=== PATIENT | female | born 1970 ===

== ENCOUNTER → 2016-09-08 | Outpatient (CLI) | payer BC | END | disposition home or self-care (01) | LOC: EDBD 09:05 → ECT 09:05 | DX: F33.2 Major depressive disorder, recurrent severe without psychotic features (principal); Z90.710 Acquired absence of both cervix and uterus; Z90.49 Acquired absence of other specified parts of digestive tract; M79.7 Fibromyalgia; M17.0 Bilateral primary osteoarthritis of knee; Z79.82 Long term (current) use of aspirin ==

== ENCOUNTER 2016-09-18 05:05 | Outpatient (RCR) | payer BC ==
[~2016-09-18] VITALS: Ht 160 cm; Wt 81.6 kg
[2016-09-18] MEDS ORDERED: Midazolam 2mg/2ml Inj ONE ×2 (05:06)
[2016-09-18] MEDS ORDERED: Excedrin Migraine tab ONE (05:06)
[2016-09-18] MEDS ORDERED: NS 550ML IV ONE ×2 (05:06)
[2016-09-18] MEDS ORDERED: Succinylcholine 20mg/ml 10ml vial ONE ×2 (05:06)
[2016-09-18] MEDS ORDERED: Ketorolac 60mg Inj ONE ×2 (05:06)
[2016-09-18] MEDS ORDERED: Methohexital Sodium Syr 100mg/10ml IVP ONE ×2 (05:06)
[2016-09-18] MEDS ORDERED: Glycopyrrolate 0.2mg/ml 1ml Vial ONE (05:06)
[2016-09-18] MEDS ORDERED: SUMAtriptan 6mg/0.5ml Inj SUBQ ONE ×2 (05:06)
[2016-09-21] MEDS ORDERED: Succinylcholine 20mg/ml 10ml vial ONE (15:09)
[2016-09-21] MEDS ORDERED: Midazolam 2mg/2ml Inj ONE (15:09)
[2016-09-21] MEDS ORDERED: NS 550ML IV ONE (15:09)
[2016-09-21] MEDS ORDERED: Ketorolac 30mg Inj ONE (15:09)
[2016-09-21] MEDS ORDERED: Methohexital Sodium Syr 100mg/10ml IVP ONE (15:09)
[2016-09-21] MEDS ORDERED: SUMAtriptan 6mg/0.5ml Inj SUBQ ONE (15:09)
[2016-09-23] MEDS ORDERED: SUMAtriptan 6mg/0.5ml Inj SUBQ ONE (08:00)
[2016-09-23] MEDS ORDERED: Midazolam 2mg/2ml Inj ONE (08:00)
[2016-09-23] MEDS ORDERED: Succinylcholine 20mg/ml 10ml vial ONE (08:00)
[2016-09-23] MEDS ORDERED: NS 550ML IV ONE (08:00)
[2016-09-23] MEDS ORDERED: Ketorolac 60mg Inj ONE (08:00)
[2016-09-23] MEDS ORDERED: Methohexital Sodium Syr 100mg/10ml IVP ONE (08:00)
[2016-09-25] MEDS ORDERED: Succinylcholine 20mg/ml 10ml vial ONE (08:00)
[2016-09-25] MEDS ORDERED: Ketorolac 60mg Inj ONE (08:00)
[2016-09-25] MEDS ORDERED: Methohexital Sodium Syr 100mg/10ml IVP ONE (08:00)
[2016-09-25] MEDS ORDERED: NS 550ML IV ONE (08:00)
[2016-09-25] MEDS ORDERED: Excedrin Migraine tab ONE (08:00)
[2016-09-25] MEDS ORDERED: Midazolam 2mg/2ml Inj ONE (08:00)
[2016-09-25] MEDS ORDERED: SUMAtriptan 6mg/0.5ml Inj SUBQ ONE (08:00)
[2016-09-25] MEDS ORDERED: Excedrin Migraine tab ORAL PRN (09:33)
[2016-09-28] MEDS ORDERED: Excedrin Migraine tab ORAL PRN (09:18)
[2016-09-30] MEDS ORDERED: Excedrin Migraine tab ORAL PRN (08:29)
[2016-09-30] MEDS ORDERED: Ketorolac 30mg Inj ONE (12:30)
[2016-09-30] MEDS ORDERED: Glycopyrrolate 0.2mg/ml 1ml Vial ONE (12:30)
[2016-09-30] MEDS ORDERED: SUMAtriptan 6mg/0.5ml Inj SUBQ ONE (12:30)
[2016-09-30] MEDS ORDERED: Midazolam 2mg/2ml Inj ONE (12:30)
[2016-09-30] MEDS ORDERED: NS 550ML IV ONE (12:30)
[2016-09-30] MEDS ORDERED: Succinylcholine 20mg/ml 10ml vial ONE (12:30)
[2016-09-30] MEDS ORDERED: Excedrin Migraine tab ONE (12:30)
[2016-09-30] MEDS ORDERED: Methohexital Sodium Syr 100mg/10ml IVP ONE (12:30)
[2016-10-02] MEDS ORDERED: Midazolam 2mg/2ml Inj ONE (12:30)
[2016-10-02] MEDS ORDERED: Methohexital Sodium Syr 100mg/10ml IVP ONE (12:30)
[2016-10-02] MEDS ORDERED: Glycopyrrolate 0.2mg/ml 1ml Vial ONE (12:30)
[2016-10-02] MEDS ORDERED: NS 550ML IV ONE (12:30)
[2016-10-02] MEDS ORDERED: Succinylcholine 20mg/ml 10ml vial ONE (12:30)
[2016-10-02] MEDS ORDERED: Excedrin Migraine tab ORAL PRN (12:30)
[2016-10-02] MEDS ORDERED: Ketorolac 30mg Inj ONE (12:30)
[2016-10-02] MEDS ORDERED: SUMAtriptan 6mg/0.5ml Inj SUBQ ONE (12:30)
[2016-10-02] MEDS ORDERED: Excedrin Migraine tab ONE (12:30)
== END 2016-10-02 | disposition home or self-care (01) ==
LOC: ECT 05:05
DX: F33.2 Major depressive disorder, recurrent severe without psychotic features (principal); M79.7 Fibromyalgia; Z90.49 Acquired absence of other specified parts of digestive tract; Z90.710 Acquired absence of both cervix and uterus; M17.0 Bilateral primary osteoarthritis of knee
CPT/HCPCS: 90870; J0330; J1885; J2250; J3030; J7040

== ENCOUNTER 2016-10-07 06:15 | Outpatient (RCR) | payer BC ==
[~2016-10-07] VITALS: Ht 160 cm; Wt 81.8 kg
[2016-10-07] MEDS ORDERED: NS 550ML IV ONE ×3 (06:16)
[2016-10-07] MEDS ORDERED: Ketorolac 60mg Inj ONE ×3 (06:16)
[2016-10-07] MEDS ORDERED: Excedrin Migraine tab ONE ×2 (06:16)
[2016-10-07] MEDS ORDERED: SUMAtriptan 6mg/0.5ml Inj SUBQ ONE ×3 (06:16)
[2016-10-07] MEDS ORDERED: Ketamine 500mg Inj ONE ×3 (06:16)
[2016-10-07] MEDS ORDERED: Succinylcholine 20mg/ml 10ml vial ONE ×3 (06:16)
[2016-10-07] MEDS ORDERED: Glycopyrrolate 0.2mg/ml 1ml Vial ONE ×3 (06:16)
[2016-10-07] MEDS ORDERED: Diazepam 10mg/2ml Inj ONE (06:16)
[2016-10-07] MEDS ORDERED: Midazolam 2mg/2ml Inj ONE ×3 (06:16)
[2016-10-07] MEDS ORDERED: Excedrin Migraine tab ORAL PRN (09:18)
[2016-10-09] MEDS ORDERED: Ketorolac 60mg Inj ONE (08:00)
[2016-10-09] MEDS ORDERED: Succinylcholine 20mg/ml 10ml vial ONE (08:00)
[2016-10-09] MEDS ORDERED: Ketamine 500mg Inj ONE (08:00)
[2016-10-09] MEDS ORDERED: Glycopyrrolate 0.2mg/ml 1ml Vial ONE (08:00)
[2016-10-09] MEDS ORDERED: Excedrin Migraine tab ONE (08:00)
[2016-10-09] MEDS ORDERED: Midazolam 2mg/2ml Inj ONE (08:00)
[2016-10-09] MEDS ORDERED: SUMAtriptan 6mg/0.5ml Inj SUBQ ONE (08:00)
[2016-10-09] MEDS ORDERED: NS 550ML IV ONE (08:00)
[2016-10-09] MEDS ORDERED: Excedrin Migraine tab ORAL PRN (08:03)
[2016-10-12] MEDS ORDERED: SUMAtriptan 6mg/0.5ml Inj SUBQ ONE (07:00)
[2016-10-12] MEDS ORDERED: Midazolam 2mg/2ml Inj ONE (07:00)
[2016-10-12] MEDS ORDERED: Succinylcholine 20mg/ml 10ml vial ONE (07:00)
[2016-10-12] MEDS ORDERED: Excedrin Migraine tab ONE (07:00)
[2016-10-12] MEDS ORDERED: Ketamine 500mg Inj ONE (07:00)
[2016-10-12] MEDS ORDERED: Glycopyrrolate 0.2mg/ml 1ml Vial ONE (07:00)
[2016-10-12] MEDS ORDERED: NS 550ML IV ONE (07:00)
[2016-10-12] MEDS ORDERED: Ketorolac 60mg Inj ONE (07:00)
[2016-10-12] MEDS ORDERED: Excedrin Migraine tab ORAL PRN (08:23)
[2016-10-14] MEDS ORDERED: SUMAtriptan 6mg/0.5ml Inj SUBQ ONE (07:00)
[2016-10-14] MEDS ORDERED: Excedrin Migraine tab ONE (07:00)
[2016-10-14] MEDS ORDERED: Ketamine 500mg Inj ONE (07:00)
[2016-10-14] MEDS ORDERED: Succinylcholine 20mg/ml 10ml vial ONE (07:00)
[2016-10-14] MEDS ORDERED: Glycopyrrolate 0.2mg/ml 1ml Vial ONE (07:00)
[2016-10-14] MEDS ORDERED: NS 550ML IV ONE (07:00)
[2016-10-14] MEDS ORDERED: Ketorolac 60mg Inj ONE (07:00)
[2016-10-14] MEDS ORDERED: Midazolam 2mg/2ml Inj ONE (07:00)
[2016-10-14] MEDS ORDERED: Excedrin Migraine tab ORAL PRN (09:23)
[2016-10-16] MEDS ORDERED: Glycopyrrolate 0.2mg/ml 1ml Vial ONE (07:00)
[2016-10-16] MEDS ORDERED: Ketamine 500mg Inj ONE (07:00)
[2016-10-16] MEDS ORDERED: Excedrin Migraine tab ONE (07:00)
[2016-10-16] MEDS ORDERED: SUMAtriptan 6mg/0.5ml Inj SUBQ ONE (07:00)
[2016-10-16] MEDS ORDERED: Succinylcholine 20mg/ml 10ml vial ONE (07:00)
[2016-10-16] MEDS ORDERED: Midazolam 2mg/2ml Inj ONE (07:00)
[2016-10-16] MEDS ORDERED: NS 550ML IV ONE (07:00)
[2016-10-16] MEDS ORDERED: Ketorolac 60mg Inj ONE (07:00)
[2016-10-16] MEDS ORDERED: Excedrin Migraine tab ORAL PRN (08:26)
[2016-10-21] MEDS ORDERED: SUMAtriptan 6mg/0.5ml Inj SUBQ ONE (07:00)
[2016-10-21] MEDS ORDERED: NS 550ML IV ONE (07:00)
[2016-10-21] MEDS ORDERED: Ketorolac 60mg Inj ONE (07:00)
[2016-10-21] MEDS ORDERED: Excedrin Migraine tab ONE (07:00)
[2016-10-21] MEDS ORDERED: Succinylcholine 20mg/ml 10ml vial ONE (07:00)
[2016-10-21] MEDS ORDERED: Midazolam 2mg/2ml Inj ONE (07:00)
[2016-10-21] MEDS ORDERED: Ketamine 500mg Inj ONE (07:00)
[2016-10-21] MEDS ORDERED: Glycopyrrolate 0.2mg/ml 1ml Vial ONE (07:00)
[2016-10-21] MEDS ORDERED: Excedrin Migraine tab ORAL PRN (10:57)
[2016-10-23] MEDS ORDERED: SUMAtriptan 6mg/0.5ml Inj SUBQ ONE (07:00)
[2016-10-23] MEDS ORDERED: Succinylcholine 20mg/ml 10ml vial ONE (07:00)
[2016-10-23] MEDS ORDERED: Ketamine 500mg Inj ONE (07:00)
[2016-10-23] MEDS ORDERED: Glycopyrrolate 0.2mg/ml 1ml Vial ONE (07:00)
[2016-10-23] MEDS ORDERED: Ketorolac 60mg Inj ONE (07:00)
[2016-10-23] MEDS ORDERED: NS 550ML IV ONE (07:00)
[2016-10-23] MEDS ORDERED: Excedrin Migraine tab ONE (07:00)
[2016-10-23] MEDS ORDERED: Midazolam 2mg/2ml Inj ONE (07:00)
[2016-10-23] MEDS ORDERED: Excedrin Migraine tab ORAL PRN (07:43)
[2016-10-26] MEDS ORDERED: Excedrin Migraine tab ORAL PRN (09:53)
[2016-10-30] MEDS ORDERED: Excedrin Migraine tab ORAL PRN (08:13)
== END 2016-11-02 | disposition home or self-care (01) ==
LOC: ECT 06:15
DX: F33.2 Major depressive disorder, recurrent severe without psychotic features (principal)
CPT/HCPCS: 90870; J0330; J2250; J3030; J3360; J3490; J7040